=== PATIENT | male | born 1990 | race American Indian/Alaskan Native ===

== ENCOUNTER 2016-07-11 23:23 | Emergency (ER) | payer MEDICAID ==
[2016-07-11 23:36] VITALS: BP 126/80
[2016-07-11] MEDS ORDERED: Albuterol/Ipratropium 3.0-0.5 MG/3 ML Neb Soln NEB ONE (23:50)
--- NOTE | 2016-07-11 23:53 | EDM.PDOC ---
ED HISTORY OF PRESENT ILLNESS - General Chief Complaint: Chest Pain Stated Complaint: CHEST PAIN Time Seen by Provider: 07/11/16 23:51 Source of Information: Reports: Patient History Limitations: Reports: No limitations - History of Present Illness INITIAL COMMENTS - FREE TEXT/NARRATIVE: 2 weeks h/o cough saw MD isabel carcamo told to f/u if not better. - Related Data Allergies/ADRs: Allergies Allergy/AdvReac Type Severity Reaction Status Date / Time No Known Allergies Allergy Verified 07/11/16 23:36 Home Meds: Home Meds . [No Known Home Meds] 07/11/16 [History] Past Medical History Musculoskeletal History: Reports: Arthritis - Past Surgical History HEENT Surgical History: Reports: Tonsillectomy Social & Family History - Family History Family Medical History: Noncontributory - Tobacco Use Smoking Status *Q: Current Every Day Smoker Years of Tobacco use: 1 Packs/Tins Daily: 0.1 - Caffeine Use Caffeine Use: Reports: Coffee - Recreational Drug Use Recreational Drug Use: No ED ROS GENERAL - Review of Systems Review Of Systems: ROS reveals no pertinent complaints other than HPI. ED EXAM, GENERAL - Physical Exam Exam: See Below Exam Limited By: No limitations General Appearance: alert, WD/WN, mild distress, other (episodic cough spasms) Ears: hearing grossly normal Throat/Mouth: Normal voice, No airway compromise Head: atraumatic Neck: supple, non-tender Respiratory/Chest: no respiratory distress, no accessory muscle use, decreased breath sounds, rhonchi, wheezing. No: accessory muscle use, retractions, splinting Cardiovascular: regular rate, rhythm GI/Abdominal: soft, non tender Neurological: alert, oriented, normal cognition, normal gait, no motor/sensory deficits Psychiatric: flat affect Skin Exam: Warm, Dry Lymphatic: no adenopathy Course - Vital Signs Last Recorded V/S: Last Vital Signs Temp 36.4 C 07/11/16 23:29 Pulse 99 07/11/16 23:29 Resp 16 07/11/16 23:29 BP 126/80 07/11/16 23:29 Pulse Ox 98 07/11/16 23:29 - Orders/Labs/Meds Orders: Active Orders 24 hr Category Date Time Status RT Aerosol Therapy [RC] ASDIRECTED Care 07/11/16 23:50 Active Chest 2V [CR] Urgent Exams 07/11/16 23:51 Taken CULTURE STREP A CONFIRMATION [RM] Stat Lab 07/11/16 23:32 Results STREP SCRN A RAPID W CULT CONF [RM] Stat Lab 07/11/16 23:32 Results Codeine/Promethazine [Phenergan with Codeine] Med 07/12/16 00:22 Once 5 ml PO ONETIME ONE Meds: Medications Discontinued Medications Generic Name Dose Route Start Last Admin Trade Name Freq PRN Reason Stop Dose Admin Albuterol/Ipratropium 3 ml 07/11/16 23:50 07/11/16 23:55 Duoneb 3.0-0.5 Mg/3 Ml NEB 07/11/16 23:51 3 ml ONETIME ONE Administration - Re-Assessments/Exams Free Text/Narrative Re-Assessment/Exam: 07/12/16 00:22 s/p duoneb=better. Departure - Departure Time of Disposition: 00:26 Disposition: Home, Self-Care 01 Condition: good Clinical Impression: Bronchospasm with bronchitis, acute Instructions: Acute Bronchitis, [id number] Forms: ED Department Discharge Additional Instructions: 1) drink lots of liquids 2) don't smoke 3) don't sleep flat at night 4) take neb treatment 3 times daily for cough 5) follow up at clinic or recheck as needed rx given: albuterol 2.5mg solution tid prn phenergan codeine syrup qid prn 4 oz - My Orders Last 24 Hours: My Active Orders 07/11/16 23:32 CULTURE STREP A CONFIRMATION [RM] Stat STREP SCRN A RAPID W CULT CONF [RM] Stat 07/11/16 23:50 RT Aerosol Therapy [RC] ASDIRECTED 07/11/16 23:51 Chest 2V [CR] Urgent 07/12/16 00:22 Codeine/Promethazine [Phenergan with Codeine] 5 ml PO ONETIME ONE - Assessment/Plan Last 24 Hours: My Active Orders 07/11/16 23:32 CULTURE STREP A CONFIRMATION [RM] Stat STREP SCRN A RAPID W CULT CONF [RM] Stat 07/11/16 23:50 RT Aerosol Therapy [RC] ASDIRECTED 07/11/16 23:51 Chest 2V [CR] Urgent 07/12/16 00:22 Codeine/Promethazine [Phenergan with Codeine] 5 ml PO ONETIME ONE
[2016-07-12] MEDS ORDERED: Codeine/Promethazine 10-6.25 MG/5 ML Syrup 5 ML UD Cup PO ONE (00:22)
== END 2016-07-12 00:30 | disposition home or self-care (01) ==
LOC: DL.ED 23:23
DX: J20.9 Acute bronchitis, unspecified (principal); M19.90 Unspecified osteoarthritis, unspecified site; F17.210 Nicotine dependence, cigarettes, uncomplicated; Z98.890 Other specified postprocedural states
CPT/HCPCS: 71020; 87081; 87430; 94640; 99284; A9270

== ENCOUNTER 2016-09-12 13:15 | Emergency (ER) | payer MEDICAID ==
[2016-09-12 13:38] VITALS: BP 115/75
--- NOTE | 2016-09-12 14:13 | EDM.PDOC ---
ED HPI GENERAL MEDICAL PROBLEM - General Chief Complaint: Back Pain or Injury Stated Complaint: HURT BACK Time Seen by Provider: 09/12/16 14:10 Source of Information: Reports: Patient History Limitations: Reports: No Limitations - History of Present Illness INITIAL COMMENTS - FREE TEXT/NARRATIVE: Pt states that he has been having lower back pain for years since an injury and that he began having more pain radiating down his left leg yesterday. Denies pain elsewhere. Ambulatory upon arrival. No decrease in sensation Onset Date: 09/11/16 Duration: Getting Worse Location: Reports: Back Quality: Reports: Same as Previous Episode, Sharp Severity: Moderate Improves with: Reports: None Worsens with: Reports: Movement Associated Symptoms: Reports: No Other Symptoms Back Pain Score (Numeric/FACES): 8 - Related Data Allergies Allergy/AdvReac Type Severity Reaction Status Date / Time No Known Allergies Allergy Verified 09/12/16 13:34 Home Meds: Home Meds . [No Known Home Meds] 07/11/16 [History] Past Medical History Musculoskeletal History: Reports: Arthritis, Fracture, Other (See Below) Other Musculoskeletal History: chin, nose, bilateral collar bones fractured. - Past Surgical History HEENT Surgical History: Reports: Adenoidectomy, Tonsillectomy Social & Family History - Family History Family Medical History: Noncontributory - Tobacco Use Smoking Status *Q: Current Some Day Smoker Years of Tobacco use: 1 Packs/Tins Daily: 0.2 Second Hand Smoke Exposure: Yes - Caffeine Use Caffeine Use: Reports: Coffee - Recreational Drug Use Recreational Drug Use: No ED ROS GENERAL - Review of Systems Review Of Systems: ROS reveals no pertinent complaints other than HPI. ED EXAM,LOWER BACK PAIN/INJURY - Physical Exam Exam: See Below Exam Limited By: No Limitations General Appearance: Alert, WD/WN, No Apparent Distress Neck: Normal Inspection, Supple, Non-Tender, Full Range of Motion Respiratory/Chest: No Respiratory Distress, Lungs Clear, Normal Breath Sounds, No Accessory Muscle Use, Chest Non-Tender Cardiovascular: Normal Peripheral Pulses, Regular Rate, Rhythm, No Edema, No Gallop, No JVD, No Murmur, No Rub Back Exam: Normal Inspection, Full Range of Motion, Paraspinal Tenderness Extremities: Normal Inspection, Normal Range of Motion, Non-Tender, No Pedal Edema, Normal Capillary Refill Neurological: Alert, Normal Mood/Affect, Normal Dorsiflexion, CN II-XII Intact, Normal Plantar Flexion, Normal Gait, Normal Reflexes, No Motor/Sensory Deficits , Oriented x 3 Course - Vital Signs Last Recorded V/S: Last Vital Signs Temp 99.6 F 09/12/16 13:37 Pulse 90 09/12/16 13:37 Resp 18 09/12/16 13:37 BP 115/75 09/12/16 13:37 Pulse Ox 99 09/12/16 13:37 - Orders/Labs/Meds Orders: Active Orders 24 hr Category Date Time Status DRUG SCREEN URINE BIORAD [URCHEM] Stat Lab 09/12/16 14:26 Received UA W/MICROSCOPIC [URIN] Stat Lab 09/12/16 14:26 Received Departure - Departure Time of Disposition: 14:54 Disposition: Home, Self-Care 01 Clinical Impression: Sciatica Qualifiers: Laterality: left Qualified Code(s): M54.32 - Sciatica, left side - Discharge Information Instructions: Muscle Strain, [id number], Chronic Back Pain, Sciatica Forms: ED Department Discharge Additional Instructions: Take the motrin and the muscle relaxer three times a day as needed. follow up in clinic in 4-7 days if no improvement. Return for worsening symptoms - My Orders Last 24 Hours: My Active Orders 09/12/16 14:26 DRUG SCREEN URINE BIORAD [URCHEM] Stat UA W/MICROSCOPIC [URIN] Stat - Assessment/Plan Last 24 Hours: My Active Orders 09/12/16 14:26 DRUG SCREEN URINE BIORAD [URCHEM] Stat UA W/MICROSCOPIC [URIN] Stat
== END 2016-09-12 15:09 | disposition home or self-care (01) ==
LOC: DL.ED 13:15
DX: M54.32 Sciatica, left side (principal); F17.210 Nicotine dependence, cigarettes, uncomplicated; Z98.890 Other specified postprocedural states
CPT/HCPCS: 72100; 80305; 81001; 99283